=== PATIENT | male | born 1965 | race African-American/Black ===

== ENCOUNTER 2017-07-09 20:24 | Emergency (ER) | payer MEDICAID ==
[~2017-07-09] VITALS: Ht 162.6 cm; Wt 65.8 kg
[~2017-07-09 20:24] MED LIST: ACID REDUCER10 MG PO; ALLOPURINOL100 MG PO; CARVEDILOL25 MG PO; CIPRO 500MG TA500 MG PO; CIPROFLOXACIN500 M2 PO; COLCHICINE0.6 M1 PO; COLCHICINE0.6 M4 PO; HYDRALAZINE HCL25 M1 PO; KEFLEX 500MG.500 MG PO; KLOR-CON M2020 ME1 PO; LISINOPRIL 10MG10 MG PO; MEDROL 4MG. DOSE4 MG PO; NOMEDS *; PHENERGAN 25MG.25 M1 PO; PREDNISONE 10MG10 MG PO; PREDNISONE 20MG20 MG PO; PREDNISONE50 MG PO; PRILOSEC OTC20 MG PO; PRILOSEC40 MG PO; TERAZOSIN PO; VICODIN 5/500 T1 TAB PO; ZANTAC 300300 M1 PO; ZANTAC150 MG PO
--- OUTSIDE RECORDS SUMMARY | 2017-07-09 20:42 | External Medical Summary Rpt | CCD ---
Author Author , NELLY Organization NELLY Address Unknown Phone Care Team Providers Care Boarder Steam Name Role Phone AIR [facility] KENTY, Unavailable Unavailable [facility] METHODS KENT, Unavailable Unavailable [facility] KENTY ARNOLD, ARNOLD Unavailable Unavailable ARNOLD TOBIN, ARNOLD Unavailable Unavailable TOBIN ARNOLD TOBIN, ARNOLD Unavailable Unavailable TOBIN YONIS FRA, YONIS Unavailable Unavailable FRA BERNERT YOLI, BERNERT Unavailable Unavailable YOLI BHATTI ALL, BHATTI ALL Unavailable Unavailable [facility] Unavailable Unavailable SERVICE, [facility] Unavailable Unavailable SERVICE, [facility] FARZANEH SAFETY GLASS INSTALLER, FARZANEH Unavailable Unavailable SAFETY GLASS INSTALLER LUZ ELENA ROSEY, Unavailable Unavailable LUZ ELENA ROSEY CECI ADR, CECI Unavailable Unavailable ADR DISANTIS WENDY, Unavailable Unavailable DISANTIS WENDY FAUGHN LUCAS, FAUGHN Unavailable Unavailable LUCAS SHERMAN JUS, SHERMAN Unavailable Unavailable JUS FRYMAN, FRYMAN Unavailable Unavailable INDIRA RACHAEL, INDIRA Unavailable Unavailable RACHAEL [facility] Unavailable Unavailable INC, [facility] Unavailable Unavailable Hospital, [facility] Unavailable [facility]available HOSPITAL P, [facility], Unavailable Unavailable [facility] Un[facility] Unavailable [facility], [facility] IVONNE MIRACLE, IVONNE MIRACLE Unavailable Unavailable [facility] NURSE Unavailable Unavailable PRACTITIONER GR, [facility] N[facility]SE PRACTITIONER [facility], Unavailable Unavailable [facility] RICKI GARCIA, RICKI Unavailable Unavailable GARCIA [facility] Unavailable Unavailable SERV POULTRY HUSBANDMAN R, [facility] SERV POULTRY HUSBANDMAN R [facility] Unavailable Unavailable SERV POULTRY HUSBANDMAN R, [facility] SERV POULTRY HUSBANDMAN R MINION WENDY, MINION Unavailable Unavailable WENDY FLORY RUTH Unavailable Unavailable GURVINDER KWA, GURVINDER KWA Unavailable Unavailable [facility], Unavailable [facility]available [facility], [facility], Unavailable Unavailable [facility], Unavailable Unavailable [facility] JOÃO CYNDEE, JOÃO CYNDEE Unavailable Unavailable JOÃO CYNDEE, JOÃO CYNDEE Unavailable Unavailable SADEK MOH, SADEK MOH Unavailable Unavailable SCIFRES ANG, SCIFRES Unavailable Unavailable ANG SCIFRES ANG, SCIFRES Unavailable Unavailable ANG STILES NAN, STILES Unavailable Unavailable NAN SUN SKINNY, SUN Unavailable Unavailable SKINNY DARSHAN RACHAEL, DARSHAN Unavailable Unavailable RACHAEL YOUNG JR JANET, YOUNG Unavailable Unavailable JR JANET Purpose Continuity of Care Document - 01-26-2013 through 2016 Problems Code Diagnosis DOS Provider Status I10 ESSENTIAL 05-04-2017 [facility] HYPERTENSIO GROUP N M109 GOUT 05-04-2017 [facility] UNSPECIFIED PHYSICIANS GROUP Z0000 ENCOUNTER 05-04-2017 [facility] GEN ADULT PHYSICIANS MED EXAM GROUP W/O ABNORMAL FIND Z8673 PERSONAL HX 05-04-2017 [facility] TIA & PHYSICIANS 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 H259 UNSPECIFIED 05-02-2017 [facility] CATARACT 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 [id number] OPEN ANGLE 05-02-2017 [facility] W/B[place] SERV E FIND HIGH [facility]OUNDATION RISK BILATERAL 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 05-02-2017 [facility] C [facility] 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 H524 PRESBYOPIA 07-30-2016 SCIF[facility] ANG [id number] PAIN IN 07-21-2016 [facility] M7989 OTHER 07-21-2016 [facility] SPECIFIED [facility] SOFT TISSUE IMAGING ASS DISORDERS J0190 ACUTE 07-19-2016 [facility] TOBIN SINUSITIS UNSPECIFIED J209 ACUTE 07-19-2016 [facility] TOBIN BRONCHITIS UNSPECIFIED R0602 SHORTNESS 06-23-2016 [facility] BREATH [facility]ANCE SERVICE R071 CHEST PAIN 06-23-2016 [facility] BREATHING SERVICE R079 CHEST PAIN 06-23-2016 [facility] ASS M150 PRIMARY 06-02-2016 [facility] TOBIN GENERALIZED OSTEOARTHRI TIS 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 ARNNAIMA 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 M545 LOW BACK 12-13-2015 [facility] PAIN [facility] SERVICE R319 HEMATURIA 12-13-2015 [facility] UNSPECIFIED [facility] SERVICE 7802 SYNCOPE AND 06-08-2015 [facility] COLLAPSE [facility] SERVICE 7804 DIZZINESS 06-08-2015 [facility] GIDDINESS PLL 62613 VOMITING 06-08-2015 [facility] 431 INTRACEREBR 03-20-2015 [facility] HEMORRHAGE 47031 HEMIPL 03-19-2015 [facility] UNSPEC SIDE [facility] DUE CEREBRVASC DISEASE 07661 ATAXIA 03-19-2015 [facility] LATE EFFECT SERV OF [facility] CEREBROVASC ULAR DISEASE 91144 NEUROGENIC 03-19-2015 [facility] BOWEL [facility] V5789 OTHER 03-19-2015 [facility] SPECIFIED [facility] REHABILITAT FOUND[facility] ION PROCEDURE OTHER 2749 GOUT, 03-15-2015 [facility] U[facility]PECIFIED [facility] 4379 UNSPECIFIED 03-13-2015 [facility] CEREBROVASC [facility] ULAR DISEASE 77594 OTHER 03-11-2015 [facility] MALAISE AND [facility] FATIGUE SERV POULTRY HUSBANDMAN R 01382 GENERALIZED 03-11-2015 [facility] PAIN [facility] SERV POULTRY HUSBANDMAN R 7813 LACK OF 03-11-2015 [facility] COORDINATIO [facility]ANCE N SERV POULTRY HUSBANDMAN R V709 UNSPECIFIED 03-11-2015 [facility] MEDICAL [facility] EXAMINATION 84995 PAIN IN 03-07-2015 [facility] JOINT, SERV FOREARM [facility] E8889 UNSPECIFIED 03-07-2015 [facility] FALL [facility] 5180 PULMONARY 03-06-2015 [facility] COLLAPSE [facility] V5882 ENCOUNTER 03-04-2015 [facility] FITTING&ADJ SERV [facility] NON-VASCULA R CATHETER NEC 22688 OTHER 03-03-2015 [facility] CONDITIONS [facility] OF BRAIN 79053 OTHER 03-03-2015 [facility] DISEASES OF SERVICES NASAL CAVITY AND SINUSES V1254 PERSONAL HX 03-03-2015 [facility] TIA & CI SERV W/O [facility] RESIDUAL DEFICITS 2768 HYPOPOTASSE 03-02-2015 [facility] NURSE AMY PRACTITIONE R GR 3485 CEREBRAL 03-02-2015 [facility] EDEMA [facility] 4019 UNSPECIFIED 03-02-2015 [facility] NURSE ESSENTIAL PRACTITIONE HYPERTENSIO R GR N 4409 GENERALIZED 03-02-2015 [facility] AND [facility] UNSPECIFIED FOUNDATION ATHEROSCLER OSIS 63534 CHEST PAIN 03-02-2015 [facility] UNSPECIFIED SERV [facility] 57548 ABDOMINAL 03-02-2015 [facility] PAIN, SERV UNSPECIFIED FOUNDATION SITE 90412 CONJUNCTIVA 03-01-2015 [facility] L [facility] HEMORRHAGE [facility] 96089 OTHER 03-01-2015 [facility] SPECIFIED SERV CARDIAC FOUNDATION DYSRHYTHMIA S 4279 UNSPECIFIED 03-01-2015 [facility] CARDIAC [facility] DYSRHYTHMIA FOUNDATION 7231 CERVICALGIA 03-01-2015 [facility] 7810 ABNORMAL 03-01-2015 [facility] INVOLUNTARY AMBULANCE MOVEMENTS SERVICE 7822 LOCALIZED 03-01-2015 [facility] SUPERFICIAL MEDICAL SWELLING IMAGING ASS MASS OR LUMP 50048 NONSPECIFIC 03-01-2015 [facility] ABNORMAL SERV ELECTROCARD [facility] IOGRAM 57283 CLOS FX 03-01-2015 [facility] VAULT [place] SKULL-SUBAR ACH-DURAL HEMORR-NO LOC 66588 CLOS FX 03-01-2015 [facility] VAULT [facility] SKULLW/ICI [facility]OUND[facility] UNS NATUR UNS SOC 8028 OTHER 03-01-2015 [place] FACIAL MEDICAL BONES IMAGING ASS CLOSED FRACTURE 91122 OTH&UNS ICH 03-01-2015 [place] FOLLOW MEDICAL INJR W/O IMAGING ASS OPEN ICW UNS SOC E9293 LATE 03-01-2015 [facility] EFFECTS OF SERV ACCIDENTAL [facility]OUNDATION FALL 7842 SWELLING 02-27-2015 [place] MASS OR MEDICAL LUMP IN IMAGING ASS HEAD AND NECK 7850 UNSPECIFIED 02-27-2015 [facility] TACHYCARDIA SERVICE 8708 OTHER 02-27-2015 [place] SPECIFIED MEDICAL OPEN WOUND IMAGING ASS OF OCULAR ADNEXA 98138 DIVERTICULO 02-23-2015 [place] SIS OF MEDICAL COLON IMAGING ASS 8830 OPEN WOUND 02-12-2015 [facility], WITHOUT PLLC MENTION COMPLICATIO N 9594 INJURY 02-12-2015 [facility] OTHER AND AMBULANCE UNSPECIFIED SERVICE HAND EXCEPT FINGER 7295 PAIN IN 01-27-2015 [facility] SOFT AMBULANCE TISSUES OF SERVICE LIMB 41470 PRECORDIAL 01-27-2015 [facility] PAIN AMBULANCE SERVICE 5758 OTHER 12-04-2014 [facility] SPECIFIED MEDICAL DISORDER OF IMAGING ASS GALLBLADDER 5780 HEMATEMESIS 12-04-2014 [facility] SERV[facility] 59549 OTHER 12-04-2014 [place] SPECIFIED MEDICAL DISORDERS IMAGING ASS OF BLADDER 92834 ABDOMINAL 12-04-2014 [place] PAIN OTHER MEDICAL SPECIFIED IMAGING ASS SITE V140 PERSONAL 08-14-2014 [facility] TO [facility] P PENICILLIN 5718 OTHER 07-21-2014 [place] CHRONIC MEDICAL NONALCOHOLI IMAGING ASS C LIVER DISEASE 7881 DYSURIA 07-21-2014 [facility] 54098 ACUTE GOUTY 02-02-2014 JOÃO CYNDEE ARTHROPATHY 93086 PAIN IN 02-02-2014 JOÃO YCNDEE JOINT, ANKLE AND FOOT [id number] Abdominal [place] pain [facility] [id number] Alcohol [place] [facility] [place] Allergies, Adverse Reactions, Alerts Type Drug Allergy Food Allergy Adverse Reaction to Substance Substance Reaction Severity Penicillin I-HIVES Intermediate Aspirin I-RASH Intermediate Onion Unknown Unknown TOMATOES (FOOD) UNKNOWN Unknown Medications Na ND Rx Da Fi Fi Am Da Di Ph RX Ph St me C No te ll ll ou ys ag ar # ys at rm s nt no ma ic us Or Da si cy ia de te s n re d LI 68 08 09 30 30 00 EA Ac SI 18 -2 -[address] ti NO 00 5- 9- 00 00 SI ve UT 51 20 20 49 DE [place] 90 17 17 81 -H [address] AR Z MA 20 CY -1 2. OF 5 CY MG NT HI TA AN B A IN C IN 68 08 09 90 30 00 EA Ac DO 46 -1 -[address] ti ME 20 0- 5- 00 00 SI ve TH 40 20 20 49 DE AC 60 17 17 74 IN 1 96 PH AR 25 MA CY MG OF CA CY PS NT UL HI E AN A IN C CE 16 08 09 30 30 00 EA Ac TI 71 -1 -[address] ti RI 40 6- 5- 00 00 SI ve ZI 27 20 20 49 DE NE 10 17 17 81 3 31 PH HC AR L MA 10 CY MG OF CY TA NT BL HI ET AN A IN C HY 50 08 09 [address] 11 -0 -[address] ti AL 10 9- 8- 00 SI ve AZ 32 20 20 49 DE IN 70 17 17 19 E 1 44 PH 25 AR MA MG CY TA OF BL CY ET NT HI AN A IN C LI 68 07 09 30 30 00 EA Ac SI 18 -2 -[address] ti NO 00 7- 1- 00 SI ve UT 51 20 20 49 DE IL 90 17 17 58 -H [address] AR Z MA 20 CY -1 2. OF 5 CY MG NT HI TA AN B A IN C CE 16 07 08 30 30 00 EA Ac TI 71 -1 -[address] ti RI 40 9- 8- 00 00 SI ve ZI 27 20 20 49 DE NE 10 17 17 49 3 54 PH HC AR L MA 10 CY MG OF CY TA NT BL HI ET AN A IN C LI 68 06 07 30 30 00 EA Ac SI 18 -2 -[address] ti NO 00 0- 1- 00 00 SI ve UT 51 20 20 49 DE IL 90 17 17 19 -H [address] AR Z MA 20 CY -1 2. OF 5 CY MG NT HI TA AN B A IN C HY 50 06 07 [address] 11 -2 -[address] ti AL 10 0- 1- 00 00 SI ve AZ 32 20 20 49 DE IN 70 17 17 19 E 1 44 PH 25 AR MA MG CY TA OF BL CY ET NT HI AN A IN C LI 68 05 06 30 30 00 EA Ac SI 18 -1 -[address] ti NO 00 1- 6- 00 00 SI ve UT 51 20 20 48 DE IL 90 17 17 71 -H [address] AR Z MA 20 CY -1 2. OF 5 CY MG NT HI TA AN B A IN C IN 68 04 05 90 30 00 EA Ac DO 46 -2 -[address] ti ME 20 1- 6- 00 00 SI ve TH 40 20 20 47 DE AC 60 17 17 60 IN 1 90 PH AR 25 MA CY MG OF CA CY PS NT UL HI E AN A IN C LA 17 04 05 2. 30 00 EA Ac TA 47 -2 -[address] ti NO 80 6- 6- 0 00 SI ve UT 62 20 20 46 DE OS 51 17 17 50 T 2 26 PH 0. AR 00 MA 5% CY EY OF E CY DR NT OP HI S AN A IN C HY 50 04 05 [address] 11 -1 -[address] ti AL 10 0- 2- 00 00 SI ve AZ 32 20 20 44 DE IN 70 17 17 29 E 1 56 PH 25 AR MA MG CY TA OF BL CY ET NT HI AN A IN C LI 68 04 05 30 30 00 EA Ac SI 18 -1 -[address] ti NO 00 0- 2- 00 00 SI ve UT 51 20 20 47 DE IL 90 17 17 50 -H [address] AR Z MA 20 CY -1 2. OF 5 CY MG NT HI TA AN B A IN C CE 16 03 05 30 30 00 EA Ac TI 71 -3 -[address] ti RI 40 0- 5- 00 00 SI ve ZI 27 20 20 47 DE NE 10 17 17 71 3 39 PH HC AR L MA 10 CY MG OF CY TA NT BL HI ET AN A IN C LI 68 03 04 30 30 00 EA Ac SI 18 -0 -[address] ti NO 00 6- 7- 00 00 SI ve UT 51 20 20 47 DE [place] 90 17 17 50 -H [address] AR Z MA 20 CY -1 2. OF 5 CY MG NT HI TA AN B A IN C LA 17 03 04 2. 30 00 EA Ac TA 47 -0 -[address] ti NO 80 2- 7- 0 00 SI ve UT 62 20 20 46 DE OS 51 17 17 50 T 2 26 PH 0. AR 00 MA 5% CY EY OF E CY DR NT OP HI S AN A IN C OS 47 02 03 10 5 00 EA Ac EL 78 -2 -[address] ti TA 10 2- 4- 00 00 SI ve AK 47 20 20 47 DE 01 17 17 71 R 3 38 PH PH AR OS MA CY 75 OF MG CY NT CA HI PS AN UL A E IN C CE 16 02 03 30 30 00 EA Ac TI 71 -2 -[address] ti RI 40 2- 4- 00 00 SI ve ZI 27 20 20 47 DE NE 10 17 17 71 3 39 PH HC AR L MA 10 CY MG OF CY TA NT BL HI ET AN A IN C IN 68 02 03 90 30 00 EA Ac DO 46 -1 -[address] ti ME 20 4- 7- 00 00 SI ve TH 40 20 20 47 DE AC 60 17 17 60 IN 1 90 PH AR 25 MA CY MG OF CA CY PS NT UL HI E AN A IN C HY 50 02 03 [address] 11 -0 -[address] ti AL 10 6- 0- 00 00 SI ve AZ 32 20 20 44 DE IN 70 17 17 29 E 1 56 PH 25 AR MA MG CY TA OF BL CY ET NT HI AN A IN C LI 68 02 03 30 30 00 EA Ac SI 18 -0 -[address] ti NO 00 6- 0- 00 00 SI ve UT 51 20 20 47 DE IL 90 17 17 50 -H [address] AR Z MA 20 CY -1 2. OF 5 CY MG NT HI TA AN B A IN C CO 66 02 03 2. 2 00 EA Ac LC 99 -0 -[address] ti HI 30 6- 0- 0 00 SI ve CI 16 20 20 46 DE NE 50 17 17 55 2 25 PH 0. AR 6 MA MG CY TA OF BL CY ET NT HI AN A IN C CO 66 01 03 7. 7 00 EA Ac LC 99 -2 -[address] ti HI 30 6- 3- 0 00 SI ve CI 16 20 20 46 DE NE 50 17 17 55 2 25 PH 0. AR 6 MA MG CY TA OF BL CY ET NT HI AN A IN C CO 66 01 02 7. 7 00 EA Ac LC 99 -0 -[address] ti HI 30 9- 0- 0 00 SI ve CI 16 20 20 46 DE NE 50 17 17 55 2 25 PH 0. AR 6 MA MG CY TA OF BL CY ET NT HI AN A IN C HY 50 12 01 [address] 11 -2 -[address] ti AL 10 3- 7- 00 00 SI ve AZ 32 20 20 44 DE IN 70 16 17 29 E 1 56 PH 25 AR MA MG CY TA OF BL CY ET NT HI AN A IN C CO 66 12 01 7. 7 00 EA Ac LC 99 -2 -[address] ti HI 30 3- 7- 0 00 SI ve CI 16 20 20 46 DE NE 50 16 17 55 2 25 PH 0. AR 6 MA MG CY TA OF BL CY ET NT HI AN A IN C CO 66 12 01 7. 7 00 EA Ac LC 99 -1 -[address] ti HI 30 5- 0- 0 00 SI ve CI 16 20 20 46 DE NE 50 16 17 55 2 25 PH 0. AR 6 MA MG CY TA OF BL CY ET NT HI AN A IN C CO 66 12 01 7. 7 00 EA Ac LC 99 -0 -[address] ti HI 30 6- 9- 0 00 SI ve CI 16 20 20 46 DE NE 50 16 17 55 2 25 PH 0. AR 6 MA MG CY TA OF BL CY ET NT HI AN A IN C KE 00 12 0 No TO 40 -2 RO 93 9- Lo LA 79 20 ng C 60 13 er 60 1 Ac MG ti /2 ve ML AL UT 00 12 0 No ED 05 -2 NI 40 9- Lo SO 01 20 ng NE 82 13 er 0 20 Ac ti MG ve TA BL ET CE 62 11 0 No PH 75 -1 AL 60 4- Lo EX 29 20 ng IN 48 13 er 8 50 Ac 0 ti MG ve CA PS UL E UT 00 11 0 No ED 05 -1 NI 40 4- Lo SO 01 20 ng NE 82 13 er 0 20 Ac ti MG ve TA BL ET AC 51 11 0 No ET 07 -1 AM 90 4- Lo IN 16 20 ng OP 19 13 er HE 9H N Ac W/ ti CO ve DE IN E #3 TA K SO 00 07 0 No DI 40 -1 UM 97 4- Lo 98 20 ng CH 30 13 er LO 9 RI Ac DE ti ve 0. 9% SO ARACELI TI ON Sa 63 07 0 No li 80 -1 ne 70 4- Lo 10 20 ng Fl 07 13 er us 5 h Ac 10 ti ML ve Sy ri ng e AZ 68 07 0 No IT 08 -1 HR 40 4- Lo OM 27 20 ng YC 80 13 er IN 1 Ac 25 ti 0 ve MG TA BL ET CE 00 07 0 No FT 40 -1 RI 97 4- Lo AX 33 20 ng ON 70 13 er E 1 25 Ac 0 ti MG ve AL LA [address] 40 -1 AT 97 0- Lo ED 95 20 ng 30 13 er RI 9 NG Ac ER ti S ve IN JE CT IO N RA 05 0 No LL -1 Y 0- Lo PA 20 ng CK 13 er Ac ti ve Sa 63 05 0 No li 80 -1 ne 70 0- Lo 10 20 ng Fl 07 13 er us 5 h Ac 10 ti ML ve Sy ri ng e Vital Signs 09-16-2013 17:42 Name Value Interpretat Reference Comment ion Range Body 98.2 [degF] Temperature BP 77 mm[Hg] Diastolic BP Systolic 147 mm[Hg] Heart 87 /min Rate/Pulse O2% 97 % Respiratory 22 /min Rate 09-16-2013 17:40 Name Value Interpretat Reference Comment ion Range Body 98.2 [degF] Temperature 09-16-2013 16:34 Name Value Interpretat Reference Comment ion Range BP 97 mm[Hg] Diastolic BP Systolic 137 mm[Hg] Heart 91 /min Rate/Pulse O2% 98 % Respiratory 20 /min Rate 08-02-2013 02:46 Name Value Interpretat Reference Comment ion Range BP 118 mm[Hg] Diastolic BP Systolic 164 mm[Hg] Heart 96 /min Rate/Pulse O2% 100 % Respiratory 18 /min Rate 08-02-2013 02:45 Name Value Interpretat Reference Comment ion Range BP 118 mm[Hg] Diastolic BP Systolic 164 mm[Hg] Heart 96 /min Rate/Pulse O2% 100 % Respiratory 18 /min Rate 04-01-2013 17:30 Name Value Interpretat Reference Comment ion Range Body 98 [degF] Temperature BP 71 mm[Hg] Diastolic BP Systolic 178 mm[Hg] Heart 107 /min Rate/Pulse O2% 95 % Respiratory 20 /min Rate 04-01-2013 15:30 Name Value Interpretat Reference Comment ion Range BP 104 mm[Hg] Diastolic BP Systolic 157 mm[Hg] Heart 105 /min Rate/Pulse O2% 97 % Respiratory 20 /min Rate 01-26-2013 19:15 Name Value Interpretat Reference Comment ion Range BP 118 mm[Hg] Diastolic BP Systolic 153 mm[Hg] Heart 101 /min Rate/Pulse O2% 97 % Respiratory 18 /min Rate 01-26-2013 16:34 Name Value Interpretat Reference Comment ion Range BP 95 mm[Hg] Diastolic BP Systolic 159 mm[Hg] Heart 85 /min Rate/Pulse O2% 95 % Respiratory 16 /min Rate Results Labs Lab Lab Date Result Refere Interp Status Commen Order Detail nces retati t Range on URIC ACID (09-16-2013 16:58) URIC 7.8 2.6-7.2 complet ACID 013 mg/dL ed 16:58 COMPREHENSIVE METABOLIC PANEL (04-01-2013 15:15) Glucose 133 74-106 complet 013 mg/dL ed Bld-mCn 15:15 c BUN 6 mg/dL 7-18 complet Bld-mCn 013 ed c 15:15 Creat 0.9 0.8-1.3 complet SerPl-m 013 mg/dL ed Cnc 15:15 ESTIMAT 85 50-200 complet ED 013 ML/MIN ed CREATIN 15:15 INE CLEARAN CE GFR 89 Greater complet (ESTIMA 013 ML/MIN than ed RUPA) 15:15 60 Sodium 141 136-145 complet SerPl-s 013 mmoL/L ed Cnc 15:15 Potassi 3.7 3.5-5.1 complet um 013 mmoL/L ed SerPl-s 15:15 Cnc Chlorid 101 98-107 complet e 013 mmoL/L ed SerPl-s 15:15 Cnc CO2 29 21.0-32 complet SerPl-s 013 mmoL/L .0 ed Cnc 15:15 Calcium 8.4 8.5-10. complet 013 mg/dL 1 ed SerPl-m 15:15 Cnc Prot 04-01-2 9.1 6.4-8.2 complet SerPl-m 013 gm/dL ed Cnc 15:15 Albumin 04-01-2 3.7 3.4-5.0 complet 013 gm/dL ed SerPl-m 15:15 Cnc Globuli 04-01-2 5.4 1.3-3.2 complet n 013 gm/dL ed Ser-mCn 15:15 c Albumin 04-01-2 0.7 UNK 1.1-1.8 complet /Glob 013 ed SerPl-m 15:15 Rto Bilirub 04-01-2 0.4 0.2-1.0 complet 013 mg/dL ed SerPl-m 15:15 Cnc AST 04-01-2 102 U/L 15-37 complet SerPl-c 013 ed Cnc 15:15 ALT 04-01-2 72 U/L 30-65 complet SerPl-c 013 ed Cnc 15:15 ALP 04-01-2 146 U/L 50-136 complet SerPl-c 013 ed Cnc 15:15 LIVER PROFILE (04-01-2013 15:15) Bilirub 04-01-2 0.1 0.0-0.2 complet Direct 013 mg/dL ed 15:15 SerPl-m Cnc Bilirub 04-01-2 0.3 0-0.9 complet 013 mg/dL ed Indirec 15:15 t SerPl-m Cnc Amylase SerPl-cCnc (04-01-2013 15:15) Amylase 04-01-2 55 U/L 25-115 complet 013 ed SerPl-c 15:15 Cnc LIPASE (04-01-2013 15:15) LIPASE 04-01-2 125 U/L 73-393 complet 013 ed 15:15 CBC with AUTO DIFF (04-01-2013 15:15) WBC # 14-2 8.8 4.8-10. complet Bld 013 K/MM3 8 ed Auto 15:15 RBC # 14-2 4.61 4.6-6.2 complet Bld 013 M/mm3 ed Auto 15:15 Hgb 04-01-2 14.7 14.1-18 complet Bld-mCn 013 g/dL .0 ed c 15:15 Hct Fr 07-14-2 43.8 % 42.0-52 complet Bld 013 .0 ed 15:15 MCV RBC 14-2 95.0 fl 82.2-97 complet 013 .8 ed 15:15 MCH RBC 14-2 31.8 pg 27-31.2 complet Qn 013 ed Auto 15:15 MEAN 2 33.5 31.8-35 complet CORPUSC 013 g/dl .4 ed ULAR 15:15 HGB CONC RDW RBC 04-01-2 13.6 % 11.5-17 complet Auto 013 .5 ed 15:15 Platele -14-2 161 142-424 complet t Bld 013 K/mm3 ed Ql 15:15 Manual MEAN 2 9.2 fl 7.4-10. complet PLATELE 013 4 ed T 15:15 VOLUME Granulo -14-2 40.9 % 37.0-80 complet cytes 013 .0 ed Fr Bld 15:15 Auto LYMPH % 07-14-2 51.4 % 10-50 complet 013 ed 15:15 Monocyt -14-2 5.8 % 1.7-9.3 complet es Fr 013 ed Bld 15:15 Auto Eosinop 07-14-2 0.6 % 0.1-12. complet hil Fr 013 0 ed Bld 15:15 Auto Basophi 07-14-2 1.2 % 0.1-2.0 complet ls Fr 013 ed Bld 15:15 Auto Granulo 07-14-2 3.6 1.3-8.0 complet cytes # 013 K/mm3 ed Bld 15:15 Auto Lymphoc 07-14-2 4.5 0.7-4.5 complet ytes Fr 013 K/mm3 ed Bld 15:15 Auto Monocyt 07-14-2 0.5 0.1-1.0 complet es # 013 K/mm3 ed Bld 15:15 Auto Eosinop 07-14-2 0.1 0.0-0.4 complet hil # 013 K/mm3 ed Bld 15:15 Auto Basophi 07-14-2 0.1 0-0.2 complet ls # 013 K/MM3 ed Bld 15:15 Auto COMPREHENSIVE METABOLIC PANEL (01-26-2013 16:30) Glucose 106 74-106 complet 013 mg/dL ed Bld-mCn 16:30 c BUN 10-2 9 mg/dL 7-18 complet Bld-mCn 013 ed c 16:30 Creat 05-10-2 0.9 0.8-1.3 complet SerPl-m 013 mg/dL ed Cnc 16:30 ESTIMAT 0510-2 86 50-200 complet ED 013 ML/MIN ed CREATIN 16:30 INE CLEARAN CE GFR 10-2 90 Greater complet (ESTIMA 013 ML/MIN than ed RUPA) 16:30 60 Sodium 10-2 137 136-145 complet SerPl-s 013 mmoL/L ed Cnc 16:30 Potassi 0510-2 3.6 3.5-5.1 complet um 013 mmoL/L ed SerPl-s 16:30 Cnc Chlorid 10-2 99 98-107 complet e 013 mmoL/L ed SerPl-s 16:30 Cnc CO2 01-26-2 27 21.0-32 complet SerPl-s 013 mmoL/L .0 ed Cnc 16:30 Calcium 10-2 8.7 8.5-10. complet 013 mg/dL 1 ed SerPl-m 16:30 Cnc Prot 10-2 9.5 6.4-8.2 complet SerPl-m 013 gm/dL ed Cnc 16:30 Albumin 10-2 3.8 3.4-5.0 complet 013 gm/dL ed SerPl-m 16:30 Cnc Globuli 10-2 5.7 1.3-3.2 complet n 013 gm/dL ed Ser-mCn 16:30 c Albumin 01-26-2 0.7 UNK 1.1-1.8 complet /Glob 013 ed SerPl-m 16:30 Rto Bilirub 10-2 0.5 0.2-1.0 complet 013 mg/dL ed SerPl-m 16:30 Cnc AST 10-2 93 U/L 15-37 complet SerPl-c 013 ed Cnc 16:30 ALT 10-2 66 U/L 30-65 complet SerPl-c 013 ed Cnc 16:30 ALP 10-2 122 U/L 50-136 complet SerPl-c 013 ed Cnc 16:30 CBC with AUTO DIFF (01-26-2013 16:30) WBC # 05-10-2 7.4 4.8-10. complet Bld 013 K/MM3 8 ed Auto 16:30 RBC # 05-10-2 4.58 4.6-6.2 complet Bld 013 M/mm3 ed Auto 16:30 Hgb 05-10-2 14.7 14.1-18 complet Bld-mCn 013 g/dL .0 ed c 16:30 Hct Fr 05-10-2 43.7 % 42.0-52 complet Bld 013 .0 ed 16:30 MCV RBC 05-10-2 95.4 fl 82.2-97 complet 013 .8 ed 16:30 MCH RBC 05-10-2 32.0 pg 27-31.2 complet Qn 013 ed Auto 16:30 MEAN 05-10-2 33.6 31.8-35 complet CORPUSC 013 g/dl .4 ed ULAR 16:30 HGB CONC RDW RBC 05-10-2 13.5 % 11.5-17 complet Auto 013 .5 ed 16:30 Platele 05-10-2 279 142-424 complet t Bld 013 K/mm3 ed Ql 16:30 Manual MEAN 05-10-2 8.5 fl 7.4-10. complet PLATELE 013 4 ed T 16:30 VOLUME Granulo 05-10-2 46.9 % 37.0-80 complet cytes 013 .0 ed Fr Bld 16:30 Auto LYMPH % 05-10-2 43.8 % 10-50 complet 013 ed 16:30 Monocyt 05-10-2 6.1 % 1.7-9.3 complet es Fr 013 ed Bld 16:30 Auto Eosinop 05-10-2 1.4 % 0.1-12. complet hil Fr 013 0 ed Bld 16:30 Auto Basophi 05-10-2 1.8 % 0.1-2.0 complet ls Fr 013 ed Bld 16:30 Auto Granulo 05-10-2 3.5 1.3-8.0 complet cytes # 013 K/mm3 ed Bld 16:30 Auto Lymphoc 05-10-2 3.2 0.7-4.5 complet ytes Fr 013 K/mm3 ed Bld 16:30 Auto Monocyt 05-10-2 0.5 0.1-1.0 complet es # 013 K/mm3 ed Bld 16:30 Auto Eosinop 05-10-2 0.1 0.0-0.4 complet hil # 013 K/mm3 ed Bld 16:30 Auto Basophi 05-10-2 0.1 0-0.2 complet ls # 013 K/MM3 ed Bld 16:30 Auto URINALYSIS/COMPLETE (01-26-2013 16:20) URINE 05-10-2 YELLOW YELLOW complet COLOR 013 ed 16:20 URINE 05-10-2 CLEAR CLEAR complet APPEARA 013 ed NCE 16:20 URINE 05-10-2 NEGATIV NEG complet GLUCOSE 013 E ed - 16:20 DIPSTIC K URINE 05-10-2 NEGATIV NEG complet BILIRUB 013 E ed IN - 16:20 DIPSTIC K URINE 05-10-2 NEGATIV NEG complet KETONE 013 E mg/dL ed 16:20 URINE 05-10-2 1.010 1.005-1 complet SPECIFI 013 UNK .030 ed C 16:20 GRAVITY URINE 05-10-2 NEGATIV NEG complet BLOOD 013 E ed 16:20 URINE 05-10-2 6.5 UNK 5.0-8.5 complet PH 013 ed 16:20 URINE 05-10-2 TRACE NEG complet PROTEIN 013 mg/dL ed - 16:20 DIPSTIC K URINE 05-10-2 2.0 NEG complet UROBILI 013 E.U./dL ed NOGEN - 16:20 DIPSTIC K URINE 05-10-2 NEGATIV NEG complet NITRATE 013 E ed - 16:20 DIPSTIC K URINE 05-10-2 NEGATIV NEG complet LEUK 013 E ed ESTERAS 16:20 E URINE 05-10-2 3-5 0 complet RBC 013 rbc/hpf ed 16:20 URINE 05-10-2 OCC O complet WBC 013 wbc/hpf ed 16:20 URINE 05-10-2 10-20 OCC complet SQUAMOU 013 #/hpf ed S CELLS 16:20 URINE 05-10-2 1+ NONE complet MUCUS 013 ed 16:20 Procedures Procedure DOS Code Location Performer Comment HEPATITIS 23361 [facility] [place] [address] [facility] [place] [address] [facility] FREE [facility] [place] [address] [facility] THYROID 7 [facility] STIMULATI INC INC NG HORMONE TSH HEPATITIS 50245 [facility] A [facility]TIBODY [facility] INC HAAB COMPREHEN 12724 [facility] SIVE [facility] METABOLIC INC INC PANEL BLOOD 74581 [facility] COUNT [facility] COMPLETE INC INC AUTO&AUTO DIFRNTL WBC HEPATITIS [address] [facility] C [facility] ANTIBODY INC INC LIPID 11059 [facility]ACK[facility]LL PANEL 7 [facility] INC INC GONIOSCOP 72150 DOM RUTH Y 7 MEDICAL SEPARATE SERV PROCEDURE FOUNDATIO N VISUAL 97305 DOM RUTH FIELD XM 7 MEDICAL UNI/BI SERV W/INTERP FOUNDATIO EXTENDED N EXAM OPHTHALMI 77891 DOM Wallace US DX 7 MEDICAL CORNEAL SERV PACHYMETR FOUNDATIO Y UNI/BI N COMPUTERI 42772 DOM RUTH ZED 7 MEDICAL OPHTHALMI SERV C IMAGING FOUNDATIO OPTIC N NERVE OPHTH 01080 SCIFRES SCIFRES MEDICAL 6 ANG ANG XM&EVAL COMPRE NEW PT 1/> VST RADEX 90869 [place] E[place]NA FOOT 6 MEDICAL ROSEY COMPLETE IMAGING MINIMUM 3 ASS VIEWS GROUND A0425 [facility] PER SERVICE SERVICE STATUTE MILE AMB A0427 [facility] SERVICE 6 AMBULANCE AMBULANCE ALS SERVICE SERVICE EMERGENCY TRANSPORT LEVEL 1 RADIOLOGI 81451 [place] ALL C 6 MEDICAL EXAMINATI IMAGING ON CHEST ASS SINGLE VIEW FRONTAL AMB A0427 [facility] SERVICE 6 AMBULANCE AMBULANCE ALS SERVICE SERVICE EMERGENCY TRANSPORT LEVEL 1 GROUND A0425 [facility] AM[facility]UL[facility] PER SERVICE SERVICE STATUTE MILE AMBULANCE A0429 [facility] SERVICE 5 AMBULANCE AMBULANCE BLS SERVICE SERVICE EMERGENCY TRANSPORT GROUND A0425 [facility] AMBULANCE PER SERVICE SERVICE STATUTE [facility] [address] [place] BERNERT DISCHARGE 5 MEDICAL YOLI DAY SERV MANAGEMEN FOUNDATIO T 30 N MIN/< WALKER E0143 PATIENT PATIENT FOLDING 5 AIDS INC AIDS INC WHEELED ADJUSTABL E/FIXED HEIGHT SBSQ 24893 [place] [address] MEDICAL YOLI CARE/DAY SERV 25 FOUNDATIO MINUTES N SBSQ 95177 [place] [address] MEDICAL YOLI CARE/DAY SERV 25 FOUNDATIO MINUTES N SBSQ 82104 [place] [address] MEDICAL YOLI CARE/DAY SERV 25 FOUNDATIO MINUTES N SBSQ [address]7976 [place] [address] MEDICAL NAN CARE/DAY SERV 25 FOUNDATIO MINUTES N SBSQ 12146 [place] [address] MEDICAL NAN CARE/DAY SERV 25 FOUNDATIO MINUTES N SBSQ 45923 [place] [address] MEDICAL YOLI CARE/DAY SERV 25 FOUNDATIO MINUTES N SBSQ 96254 [place] [address] MEDICAL YOLI CARE/DAY SERV 25 FOUNDATIO MINUTES N SBSQ 33021 [place] [address] MEDICAL YOLI CARE/DAY SERV 25 FOUNDATIO MINUTES N DUP-SCAN 42706 [place] MINION XTR VEINS 5 MEDICAL WENDY COMPLETE SERV FOUNDATIO BILATERAL N STUDY AMBULANCE A0428 [facility] SERVICE 5 AMBULANCE AMBULANCE BLS SERV POULTRY HUSBANDMAN SERV POULTRY HUSBANDMAN NONEMERGE R R NMY TRANSPORT GROUND A0425 [facility] MILEAGE 5 AMBULANCE AMBULANCE PER SERV POULTRY HUSBANDMAN SERV POULTRY HUSBANDMAN STATUTE R R [facility] [address] [facility] 5 MEDICAL JUS DAY SERV MANAGEMEN FOUNDATIO T 30 N MIN/< SBSQ 74970 [facility] 5 MEDICAL JUS CARE/DAY SERV 15 FOUNDATIO MINUTES N SBSQ [address] [facility] 5 MEDICAL JUS CARE/DAY SERV 15 FOUNDATIO MINUTES [address] [facility] 5 MEDICAL JUS CARE/DAY SERV 15 FOUNDATIO MINUTES N RADEX 40250 [facility] 5 MEDICAL COMPLETE SERV MINIMUM 3 FOUNDATIO VIEWS N SBSQ 77833 [facility] 5 MEDICAL JUS CARE/DAY SERV 15 FOUNDATIO MINUTES N SBSQ 51543 [facility] 5 MEDICAL MEDICAL CARE/DAY SERV SERV 15 FOUNDATIO FOUNDATIO MINUTES N N RADIOLOGI 95210 [facility] 5 MEDICAL RACHAEL EXAMINATI SERV ON CHEST FOUNDATIO SINGLE N VIEW FRONTAL SLCTV 67752 [facility] 5 MEDICAL JUS CAROTID/I SERV NNOM ART FOUNDATIO ANGIO N INTRCRANL ART SLCTV 57169 [facility] CATH 5 MEDICAL JUS SUBCLAVIA SERV N ART FOUNDATIO ANGIO N VERTEBRAL ARTERY RADEX 24821 [place] DISANTIS ABDOMEN 1 5 MEDICAL WENDY SERV ANTEROPOS FOUNDATIO TERIOR N VIEW SBSQ 39044 [facility] 5 MEDICAL JUS CARE/DAY SERV 15 FOUNDATIO MINUTES N SBSQ 80227 [place] [address] MEDICAL JUS CARE/DAY SERV 15 FOUNDATIO MINUTES N RADEX 50621 [place] CECI ABDOMEN 1 5 MEDICAL ADR SERV ANTEROPOS FOUNDATIO [place] ANES [address] [place] NON-INVAS 5 MEDICAL MEDICAL YUMIKO SERVICES SERVICES IMAGING/R ADIATION THERAPY RADIOLOGI 53531 [facility] 5 MEDICAL RACHAEL EXAMINATI SERV ON CHEST FOUNDATIO SINGLE N VIEW FRONTAL MRI BRAIN [address] [facility] BRAIN 5 MEDICAL STEM W/O SERV W/CONTRAS FOUNDATIO T N MATERIAL SBSQ 90370 [place] [address] MEDICAL JUS CARE/DAY SERV [address] [place] [address] DOM GURVINDER KWA ANGIOGRAP 5 MEDICAL HY NECK SERV W/CONTRAS FOUNDATIO T/[place] [address] [place] YONIS ANGIOGRAP 5 MEDICAL FRA HY CHEST SERV W/CONTRAS FOUNDATIO T/[place] [address] DOM HOLLINS KWA THORACIC 5 MEDICAL SPINE W/O SERV CONTRAST FOUNDATIO MATERIAL N INITIAL 43093 [place] [address] MEDICAL JUS CARE/DAY SERV 70 FOUNDATIO MINUTES N CRITICAL 32006 [facility] 5 NURSE GARCIA ILL/INJUR PRACTITIO ED NER GR PATIENT INIT 30-[address] [place] [address] DOM BRANNON ANGIOGRAP 5 MEDICAL HY HEAD SERV W/CONTRAS FOUNDATIO T/NONCONT N [facility]ST [facility] LUMBAR 310[address] DOM GURVINDER KWA SPINE 5 MEDICAL W/[place] [address] DOM YONIS ABDOMEN & 5 MEDICAL FRA PELVIS SERV W/[place] [address] [place] ELENA MAXILLOFA 5 MEDICAL ROSEY CIAL W/O IMAGING CONTRAST ASS MATERIAL ECG 39947 DOM FARZANEH ROUTINE 5 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 SERV W/LEAST FOUNDATIO 12 LDS N I&R ONLY GROUND A0425 [facility] AMBULANCE PER SERVICE SERVICE STATUTE MILE AMB A0431 AIR [facility] SERVICE 5 METHODS METHODS [facility] SRVC TRANSP[place] [address] [place] [address] [place] ELENA HEAD/BRAI 5 MEDICAL ROSEY N W/[place] [address] DOM SUN CERVICAL 5 MEDICAL SKINNY SPINE W/O SERV CONTRAST FOUNDATIO MATERIAL N AMBULANCE A0429 [facility] SERVICE 5 AMBULANCE AMBULANCE BLS SERVICE SERVICE EMERGENCY TRANSPORT GROUND A0425 [facility] AM[facility]ULANCE AMBULANCE PER SERVICE SERVICE STATUTE MILE RADEX 57755 [place] E[facility] ORBITS 5 MEDICAL ROSYE COMPLETE IMAGING MINIMUM 4 ASS VIEWS AMB A0427 [facility] SERVICE 5 AMBULANCE AMBULANCE ALS SERVICE SERVICE [place] [address] [place] E[place] ABDOMEN & 5 MEDICAL ROSEY PELVIS IMAGING W/O ASS CONTRAST MATERIAL RADIOLOGI 45339 [place] ELE[place] C 5 MEDICAL ROSEY EXAMINATI IMAGING ON CHEST ASS SINGLE VIEW FRONTAL SIMPLE 30828 [facility] REPAIR 5 PHYSICIAN RACHAEL SCALP/NEC S, PLLC K/AX/CARY T/TRUNK 2.5CM/< GROUND A0425 [facility]ULANCE AMBULANCE PER SERVICE SERVICE STATUTE MILE AMBULANCE A0429 [facility] SERVICE 5 AMBULANCE AMBULANCE BLS SERVICE SERVICE EMERGENCY TRANSPORT RADIOLOGI 84298 MARTY [facility]Z ELENA C 5 MEDICAL ROSEY EXAMINATI IMAGING ON CHEST ASS SINGLE VIEW FRONTAL AMB A0427 [facility] SERVICE 5 AMBULANCE AMBULANCE ALS SERVICE SERVICE EMERGENCY TRANSPORT LEVEL 1 GROUND A0425 [facility]ANCE AMBULANCE PER SERVICE SERVICE STATUTE MILE GROUND A0425 [facility]ULANCE AMBULANCE [place] [address] MARTY LUZ ELENA ABDOMEN & 5 MEDICAL ROSEY PELVIS IMAGING W/O ASS CONTRAST MATERIAL AMBULANCE A0429 [facility] SERVICE 5 AMBULANCE AMBULANCE BLS SERVICE SERVICE EMERGENCY TRANSPORT THERAPEUT 69180 ROSAL[facility] BLACKWELL IC 4 [facility] PROPHYLAC INC INC TIC/DX INJECTION SUBQ/IM GROUND A0425 [facility] AMBULANCE AMBULANCE PER SERVICE SERVICE STATUTE MILE AMB A0427 [facility] SERVICE 4 AMBULANCE AMBULANCE ALS SERVICE SERVICE EMERGENCY TRANSPORT LEVEL 1 RADIOLOGI 77955 M[facility]Y [facility]Z ELENA C EXAM 4 MEDICAL ROSEY CHEST 2 IMAGING VIEWS ASS FRONTAL&[place] [address] MART[place] LUZ ELENA ABDOMEN & 4 MEDICAL ROSEY PELVIS IMAGING W/CONTRAS ASS T MATERIAL CT THORAX 77525 MART[place] LUZ ELENA 4 MEDICAL ROSEY W/CONTRAS IMAGING T ASS MATERIAL Encounters Encounter Start End Date Code Location Performer Type Date [facility] ROSALVA - 7 7 [facility] OUTPATIEN INC T OFFICE 28490 [facility] OUTPATIEN 7 7 PHYSICIAN T NEW 20 S GROUP MINUTES OFFICE 30168 DOM RUTH CONSULTAT 7 7 MEDICAL ION SERV NEW/ESTAB FOUNDATIO PATIENT N 60 MIN OFFICE 17052 NANY ROBERTSPATISYLVIE 7 7 T VISIT 15 MINUTES OFFICE 97221 NANY AYON OUTPATISYLVIE 7 7 T VISIT 15 MINUTES EMERGENCY 89204 [place] [facility] 6 6 PHYSICIAN DEPARTMEN S, PLL[facility] T VISIT MODERATE SEVERITY OFFICE 91923 NANY AYON OUTPATIEN 6 6 TOBIN TOBIN T VISIT 15 MINUTES OFFICE 84675 NANY AYON OUTPATIEN 6 6 TOBIN TOBIN T VISIT 15 MINUTES OFFICE 02381 NANY AYON OUTPATIEN 6 6 TOBIN TOBIN T NEW 30 MINUTES EMERGENCY 48622 [place] BARRY DEPT 5 5 PHYSICIAN LUCAS VISIT S, PLLC HIGH SEVERITY& THREAT PENDING SALE TO [facility] EMERGENCY 28371 DOM DE LA O JR DEPT 5 5 MEDICAL JANET VISIT SERV HIGH FOUNDATIO SEVERITY& N THREAT [facility] ROSALVA - 5 5 [facility] OUTPATIEN INC T EMERGENCY 86523 [place] COLON 5 5 [facility] MODERATE SEVERITY EMERGENCY 57325 ROSALVA COLON 4 4 [facility] T VISIT P LOW/MODER SEVERITY HOSPITAL [facility] - 4 4 [facility] OUTPATIEN INC T EMERGENCY 52907 JOÃO CYNDEE JOÃO CYNDEE 4 4 [facility] T VISIT MODERATE SEVERITY Emergency SHRUTHI Hernandez (ER) 3 16:16 3 17:43 [facility] Emergency SHRUTHI Colon MD (ER) 3 02:19 3 02:48 [facility] Emergency SHRUTHI Grossman MD (ER) 3 15:21 3 17:32 [facility] Emergency SHRUTHI WASHINGTON MD (ER) 3 14:37 3 19:15 [facility]
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
--- OUTSIDE RECORDS SUMMARY | 2017-07-09 20:45 | External Medical Summary Rpt | CCD ---
Author Author , NELLY Organization NELLY Address Unknown Phone Immunization Name Date Rout CVX Reac Dose Comm Prov Is Faci e tion ent ider Refu lity Give sed n Td 07-2 9 999 Hist H134 No H134 (mica 3-19 ori lt), 96 al Info adso rmat rbed ion - Sour ce Unsp ecif ied
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
--- OUTSIDE RECORDS SUMMARY | 2017-07-09 20:46 | External Medical Summary Rpt ---
Author Author [employer], [employer] Organization [employer] Address Unknown Phone Unavailable Results Comprehensive metabolic 2000 panel in Serum or Plasma Observa Value Referen Units Interpr Notes Date tion ce etation Range Albumin/G 1.1 - 1.8 No Low No May 04 lobulin informati informati 2016 [Mass on in on in 11:25 AM ratio] in source source Serum or data data Plasma Albumin 3.4 - 5.0 gm/dL Normal No May 04 [Mass/vol informati 2016 ume] in on in 11:25 AM Serum or source Plasma data Alkaline 46 - 116 U/L Normal No May 04 phosphata informati 2016 se on in 11:25 AM [Enzymati source c data activity/ volume] in Serum or Plasma Bilirubin 0.2 - 1.0 mg/dL Normal No May 04 .total informati 2016 [Mass/vol on in 11:25 AM ume] in source Serum or data Plasma Urea 7 - 18 mg/dL High No May 04 nitrogen informati 2016 [Mass/vol on in 11:25 AM ume] in source Serum or data Plasma Calcium 8.5 - mg/dL Normal No May 04 [Mass/vol 10.1 informati 2016 ume] in on in 11:25 AM Serum or source Plasma data Chloride 98 - 107 mmoL/L Low No May 04 [Moles/vo informati 2017 lume] in on in 11:25 AM Serum or source Plasma data Carbon 21.0 - mmoL/L Normal No May 04 dioxide, 32.0 informati 2016 total on in 11:25 AM [Moles/vo source lume] in data Serum or Plasma Creatinin 0.70 - mg/dL High No May 04 e 1.30 informati 2016 [Mass/vol on in 11:25 AM ume] in source Serum or data Plasma Estimated >60 ML/MIN No REFERENCE May 04 informati RANGE: 2017 glomerula on in >60 11:25 AM r source ML/MIN/1. filtratio data 73 SQUARE n rate METERSIf (GF this patient is -A merican, then multiply theresult by 1.210. Globulin 1.3 - 3.2 gm/dL High No May 04 [Mass/vol informati 2016 ume] in on in 11:25 AM Serum source data Glucose 74 - 106 mg/dL Normal No May 04 [Mass/vol informati 2016 ume] in on in 11:25 AM Serum or source Plasma data Potassium 3.5 - 5.1 mmoL/L Normal No May 04 inform2016 [Moles/vo on in 11:25 AM lume] in source Serum or data Plasma Sodium 136 - 145 mmoL/L Low No May 04 [Moles/vo informati 2016 lume] in on in 11:25 AM Serum or source Plasma data Aspartate 15 - 37 U/L High No May 042016 aminotran on in 11:25 AM sferase source [Enzymati data c activity/ volume] in Serum or Plasma Alanine 12 - 78 U/L Normal No May 04 aminotran 2016 sferase on in 11:25 AM [Enzymati source c data activity/ volume] in Serum or Plasma Protein 6.4 - 8.2 gm/dL High No May 04 [Mass/vol informati 2016 ume] in on in 11:25 AM Serum or source Plasma data Thyroxine (T4) free [Mass/volume] in Serum or Plasma Observa Value Referen Units Interpr Notes Date tion ce etation Range Thyroxine 0.76 - ng/dL Normal No May 04 (T4) 1.46 2016 free on in 11:25 AM [Mass/vol source ume] in data Serum or Plasma Lipid 1996 panel in Serum or Plasma Observa Value Referen Units Interpr Notes Date tion ce etation Range Cholester < 200 mg/dL No No May 04 ol informati inform2016 [Moles/vo on in on in 11:25 AM lume] in source source Unspecifi data data ed specimen Cholester 40 - 60 MG/DL High No May 04 ol in HDL informati 2016 on in 11:25 AM [Mass/vol source ume] in data Serum or Plasma Cholester 0 - 130 mg/dL Normal No May 04 ol in LDL informati 2016 on in 11:25 AM [Mass/vol source ume] in data Serum or Plasma by calculati on Triglycer 30 - 200 mg/dL Normal No May 04 delma 2016 [Moles/vo on in 11:25 AM lume] in source Serum or data Plasma Cholester 0 - 40 No Normal No Apr 16 ol in informati 2017 VLDL on in on in 11:25 AM [Mass/vol source source ume] in data data Serum or Plasma Thyrotropin [Units/volume] in Serum or Plasma Observa Value Referen Units Interpr Notes Date tion ce etation Range Thyrotrop 0.358 - uIU/ml Normal No Apr 16 in 3.740 2016 [Units/vo on in 11:25 AM lume] in source Serum or data Plasma CBC W Auto Differential panel in Blood Observa Value Referen Units Interpr Notes Date tion ce etation Range Basophils 0 - 0.2 K/MM3 Normal No May 042016 [#/volume on in 11:25 AM ] in source Blood by data Automated count Basophils 0.1 - 2.0 % Normal No May 04 /100 2016 leukocyte on in 11:25 AM s in source Blood by data Automated count Eosinophi 0.0 - 0.4 K/mm3 Normal No May 04 ls 2016 [#/volume on in 11:25 AM ] in source Blood by data Automated count Eosinophi 0.1 - % Normal No May 04 ls/100 12.0 2016 leukocyte on in 11:25 AM s in source Blood by data Automated count Granulocy 1.3 - 8.0 K/mm3 Normal No May 04 za 2016 [#/volume on in 11:25 AM ] in source Blood by data Automated count Granulocy 37.0 - % Normal No May 04 za/100 80.0 2016 leukocyte on in 11:25 AM s in source Blood by data Automated count Hematocri 42.0 - % Low No May 04 t [Volume 52.0 2016 on in 11:25 AM Fraction] source of Blood data Hemoglobi 14.1 - g/dL Low No May 04 n 18.0 2016 [Mass/vol on in 11:25 AM ume] in source Blood data Lymphocyt 0.7 - 4.5 K/mm3 Normal No May 04 es 2016 [#/volume on in 11:25 AM ] in source Unspecifi data ed specimen by Automated count Lymphocyt 10 - 50 % Normal No May 04 es 2016 [#/volume on in 11:25 AM ] in source Unspecifi data ed specimen by Automated count Erythrocy 27 - 31.2 pg High No May 04 te mean 2016 corpuscul on in 11:25 AM ar source hemoglobi data n [Entitic mass] Erythrocy 31.8 - g/dl Normal No May 04 te mean 35.4 2016 corpuscul on in 11:25 AM ar source hemoglobi data n concentra tion [Mass/vol ume] by Automated count Erythrocy 82.2 - fl Normal No May 04 te mean 97.8 2016 corpuscul on in 11:25 AM ar volume source [Entitic data volume] by Automated count Monocytes 0.1 - 1.0 K/mm3 Normal No May 042016 [#/volume on in 11:25 AM ] in source Blood by data Automated count Monocytes 1.7 - 9.3 % Normal No May 04 /100 2016 leukocyte on in 11:25 AM s in source Blood by data Automated count Platelet 7.4 - fl Normal No May 04 mean 10.4 2016 volume on in 11:25 AM [Entitic source volume] data in Blood by Automated count Platelets 142 - 424 K/mm3 Normal No May 042016 [#/volume on in 11:25 AM ] in source Blood data Erythrocy 4.6 - 6.2 M/mm3 Low No May 04 za inform2016 [#/volume on in 11:25 AM ] in source Amniotic data fluid Erythrocy 11.5 - % Normal No May 04 te 17.5 2016 distribut on in 11:25 AM ion width source [Entitic data volume] by Automated count Leukocyte 4.8 - K/MM3 Normal No May 04 s 10.8 2016 [#/volume on in 11:25 AM ] in source Blood data
[2017-07-09 20:59] LABS: HEMOGLOBIN 11.4 g/dL (14.1-18.0); LYMPH # 2.9 K/mm3 (0.7-4.5); LYMPH % 36.1 % (10-50)
--- NOTE | 2017-07-09 21:06 | Emergency Room Report ---
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 N Clinical Suspician of Infection? N Mental Status: 1 - Regular (Normal Baseline) Sepsis Risk:Possible Sepsis Risk Have you (or family members/close friends) recently traveled outside the [place]? N If Yes, where/when: Have you had exposure to infectious disease within the past month? N TB? Other? Specify: Source patient, RN notes reviewed, family, EMS, old records Exam Limitations no limitations Comment pt with acute syncopal episode tonight but also involved trip type injury - pt with brief loc but no chest pain or palpatations Cardiac Chest Pain Chest pain indicative of cardiac No Timing/Duration this evening Severity moderate ALLERGIES Coded Allergies: Penicillins (07/21/16) aspirin (07/21/16) Home Medications Active Scripts LISINOPRIL (Lisinopril) 40 MG PO DAILY #30 TAB Ref 1 Prov: 06/10/15 Hydralazine Hcl (Hydralazine 25MG Tab) 25 MG PO TID #90 TAB Ref 1 Prov: 06/10/15 Colchicine 0.6 MG PO DAILY #7 TAB Ref 1 Prov: 07/21/16 Methylprednisolone (Medrol Dose Phil) 4 MG PO UD #1 PHIL Prov: 07/21/16 RANITIDINE HCL (Zantac) 300 MG PO DAILY #15 TAB Ref 1 Prov: 07/21/16 Reported Medications Allopurinol 100 MG PO DAILY #30 TAB CIPROFLOXACIN HCL (Ciprofloxacin HCl) 500 MG PO BID #20 History Medical History General CAD? No Angina: Yes IA: No Hypertension? Yes Hyperlipidemia? No CHF? No DVT? No PE? No COPD? No Asthma? Yes Anemia? No Hernia? No Thyroid Problems? No Hypothyroidism? No CVA? No Seizures? No Diabetes? No End Stage Renal Disease? No UTI? No Stones? No GB Disease: No Nephritic Syndrome? No Asplenia? No Hepatitis? No Sickle Cell Disease? No Arthritis? No Cataracts? No Glaucoma? No MRSA? No TB? No Cancer? No More? Yes Additional hx: SUBDURAL BLEED Immunization Hx DT/Tetanus 1-4 Years Ago Flu Refused Pneumonia Received In Past Surgical Hx Previous Surgery?Y BRAIN SX R/T BLEED Family History Family Hx Diabetes Yes CAD Yes Hypertension Yes Hyperlipidemia Yes Cancer Yes TB No Social History Smoking Hx Smoker: Light Tobacco Smoker Tobacco: No Type Cigarettes Packs/day < 1 Pack Alcohol Alcohol: Yes Drugs none Review of Systems All Other Systems Reviewed and Negative Constitutional denies fever Eyes denies drainage ENT denies: ear discharge, epistaxis, throat pain. Respiratory denies cough, denies shortness of breath, denies wheezing Cardiovascular see HPI, denies chest pain, denies palpitations, syncope Gastrointestinal see HPI, abdominal pain, denies diarrhea, denies vomiting Genitourinary denies: dysuria, frequency, hesitancy, hematuria. Musculoskeletal denies back pain, denies joint pain, denies joint swelling, denies neck pain Skin denies rash Psychiatric/Neurological denies headache, denies seizure Physical Exam Vital Signs Vital Signs Date Time Temp Pulse Resp B/P Pulse O2 O2 Flow FiO2 Ox Delivery Rate 07/09 2259 93 21 123/90 99 07/09 2215 101 21 148/99 100 07/09 2118 96 21 122/91 100 07/09 2027 98.0 108 24 103/68 100 - WBC >12,000 or <4,000 or 10% bands? 2 or more SIRS Criteria Met? B/P:123/90 MAP:79 Creatinine >2.0? UA output<0.5ml/kg/hr for 2 hrs? Platelet count >100,000? Lactate >2.0mmol/1? INR >1.2 or PTT > than 60 sec? Evidence of Organ Dysfunction? Provider documented clinical suspician of infection? N Sepsis Criteria Count: 2 Sepsis Risk: Possible Sepsis Risk General Appearance no apparent distress Eye Exam - bilateral eye PERRL, bilateral eye EOMI Ear, Nose, Throat dental caries Neck supple Respiratory Status No: respiratory distress. Lung Sounds bilateral: lungs clear. 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 No Results/Orders Laboratory Tests 07/09/172214: Opiates Screen NEGATIVE, Urine Methadone Screen NEGATIVE, Barbiturates NEGATIVE, Phencyclidine Screen NEGATIVE, Amphetamines Screen NEGATIVE, Benzodiazepines Screen NEGATIVE, Cocaine Screen NEGATIVE, Marijuana (THC) Screen NEGATIVE, Urine Color YELLOW, Urine Appearance CLEAR, Urine pH 6.0, Ur Specific [place] 1.010, Urine Protein NEGATIVE, Urine Ketones TRACE H, Urine Blood NEGATIVE, Urine Nitrate NEGATIVE, Urine Bilirubin NEGATIVE, Urine Urobilinogen 2.0, Ur Leukocyte Esterase NEGATIVE, Urine WBC 3-5, Ur Squamous Epith Cells 3-5, Urine Mucus TRACE , Urine Glucose NEGATIVE 07/09/172039: Troponin I < 0.02 07/09/172039: Sodium 128 L, Potassium 4.5, Chloride 91 L, Carbon Dioxide 22, BUN 19 H, Creatinine 2.0 H, Estimated Creat Clear 39 L, Estimated GFR (MDRD) 35, Glucose 128 H, Calcium 8.9, Total Bilirubin 0.7, AST 123 H, ALT 54, Alkaline Phosphatase 78, Total Protein 8.7 H, Albumin 3.9, Globulin 4.8 H, Albumin/ Globulin Ratio 0.8 L, Amylase 87, Lipase 331, WBC 8.1, RBC 3.59 L, Hgb 11.4 L , Hct 35.0 L, MCV 97.3, RDW 14.1, Plt Count 220, MPV 8.7, Gran % 52.8, Gran # 4.3, Lymphocytes % 36.1, Monocytes % 8.3, Eosinophils % 1.2, Basophils % 1.6, Lymphocytes # 2.9, Monocytes # 0.7, Eosinophils # 0.1, Basophils # 0.1, PUBS MCHC 32.5, MCH 31.6 H, Alcohols 215 H Current Medication Orders Sig/Jojo Start time Last Medication Dose Route Stop Time Status Admin Sodium Chloride 1,000 ML .Q10H 07/09 2045 AC 07/09 IV 07/10 Sodium Chloride 10 ML PRN PRN 07/09 2045 AC IV 07/10 2038 Sodium Chloride 1,000 ML .STK-MED ONE 07/09 2041 DC IV Orders Procedure Date/time Status DIET-NOTHING BY MOUTH 07/10 B Active TROPONIN I 07/[address] HEAD W/O CONTRAST 07/[address] CERVICAL SPINE W/O CONT. 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 ST/Twave chgs XRAY/CT/US XRAY/CT/US 1 XRAY chest, pelvis XR interpretation by reviewed by me Xray Results normal/NAD XRAY/CT/US 2 CT head, C-spine, abdomen, pelvis CT interpretation by discussed w/radiologist Time results known: 2211 CT Results abnormal (see report) Departure Departure Time of Disposition 2329 Disposition DC Home or Self Care(routine) Clinical Impression Primary Impression: Syncope Qualifiers: Syncope type: unspecified Qualified Code: R55 - Syncope and collapse Secondary Impressions: Alcohol intoxication Qualifiers: Complication of substance-induced condition: uncomplicated Qualified Code: F10.920 - Alcohol use, unspecified with intoxication, uncomplicated Renal insufficiency Condition STABLE Referrals SANG LECHUGA (Family) Patient Instructions DI for Syncope in Adults (Fainting) Additional Instructions see pcp tuesday am for follow up and hold lisinopril Discharge Counseling Counseled pt/family regarding diagnosis, test results, medications/RX, follow up needs ED Critical Care Critical Care No at [phone]
[2017-07-09 22:33] LABS: URINE BLOOD NEGATIVE (NEG)
[2017-07-09 22:37] LABS: AMPHETAMINES/METAMPHETAMINES NEGATIVE ng/mL (<1000)
[2017-07-09 22:40] LABS: URINE BILIRUBIN - DIPSTICK NEGATIVE (NEG)
--- NOTE | 2017-07-10 | RADIOLOGY REPORT PS360 ---
CT HEAD WITHOUT CONTRAST CT BONE WINDOWS included ORDERING PHYSICIAN : Brandy Colon MD PATIENT AGE: 52 years GENDER: Male PROCEDURE: Routine axial images headwithout contrast. Brain & bone windows HISTORY: FALLStriking back of head. 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 Old infarct sequela most evident here. (. Seen on axial slice 19 through 22.) There small triangular old focal area atrophy periphery inferior left frontal lobe anteriorly; reflect a small old insult/or ischemia here.. (Axial slice 18 & 19) There is diffuse cerebral atrophy advanced for 52-year-old .. Suggestion chronic small vessel deep white matter of ischemic changes again noted bilaterally. Suggestion of a few tiny lacunar infarcts at basal ganglia bilateral. Unchanged. No subdural collection evident. No definitive acute hemorrhage However On close inspection there is a curious 15 mm transverse x 12 mm AP vague ovoid focus which appears very very slightly denser than adjacent cerebellum. (Axial image 15, 16, 17). Suggestion/question of subtle surrounding edema questionably present outlining its margin . These images initially raise question possible underlying small mass lesion developing but there is no mass effect.. Subtle residual density tracking into this area from the previous hematoma is briefly considered. Doubt but cannot totally exclude subtle area of very subtle petechial hemorrhage here at inferior left cerebellum- difficult to totally exclude... Would suggest a follow-up CT with and without contrast.. If significant drinking history may be worth checking clotting times.(I would note that this area is not readily apparent on the CT C-spine this area. On those studies at is near isodense character to adjacent tyler matter..). Findings briefly discussed with Dr. oClon in the ER Old skull fracture at the left supraorbital region and continuing to the left frontal bone was seen in February 2015 with mild residual from this partially healed fracture. Mild soft tissue swelling overlying the right occipital region. No significant findings of the paranasal sinuses only scant mucosal thickening inferior right maxillary sinus. Mastoid air cells bilateral, middle ear and IACs bilaterally as well as base of skull otherwise unremarkable.. IMPRESSION: 1. . 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 2. Very Small focal area of atrophy anterior inferior left frontal lobe-likely reflect prior minor insult/ischemia this region 3. Diffuse cerebral atrophy. Advanced for 52-year-old. . Chronic small vessel deep white matter changes cerebral hemispheres similar to prior study. 4... Additionally note curious appearance inferior left cerebellar hemisphere. Suggestion of vague 15 mm ovoid area, very very slightly denser than adjacent tyler matter, & located at inferior left cerebellar hemisphere. Suggestion/question minor surrounding edema.. Equivocal feature. Could be exaggerated by streak artifact.; Initially question possible small mass lesion but no significant mass effect. Sequela from old hemorrhagic event in this in this general region considered.. Difficult to exclude a small recent petechial hemorrhagic changes from from current or recent injury (but I understand from provided hx Dr Allen that only minor trauma). This warrants follow-up. Consider follow-up pre and postcontrast CT,... Or MRI.. MRI is particularly useful in evaluating posterior fossa (Additional note. This was not addressed by [facility] report but is evident on axial image 16, 17 at inferior left cerebellum ) 5. Old left frontal skull fracture residual from 2014 (Fax report to Riya Bray, [facility] follow-up)
--- NOTE | 2017-07-10 00:09 | RADIOLOGY REPORT PS360 ---
CT CERVICAL SPINE W/O CONT HISTORY: FALL neck pain Patient Age: 52 years: Male Ordering Physician: Brandy Colon MD TECHNIQUE: Helical CT scan performed the cervical spine with sagittal coronal reconstructions on CT workstation. COMPARISON :Plain film C-spine August 2008. FINDINGS No acute fracture nor subluxation. Progressive degenerative changes C-spine versus 2008. Multilevel degenerative disc changes and multilevel marginal osteophytes & spurring have progressed since prior study. Nonspecific straightening most likely positional. Cervical spondylosis with disc space narrowing most evident at C6/7. Posterior disc & osteophyte features most evident at this level indenting anterior aspect of thecal sac and yield a borderline spinal stenosis at and mild bilateral foraminal encroachment. C5/6 and C4/5 with a less pronounced disc space narrowing and uncovertebral joint hypertrophy bilaterally. Spurring yields Mild encroachment upon the neural foramen bilaterally. There is also disc space narrowing C7 on T1. Hypertrophic facet changes most pronounced the left at this level. C1-C2 relationships appear normal. Prevertebral soft tissues appear normal. Nonspecific straightening most likely positional but can reflect muscle spasm from recent injury. Generous tonsils bilateral. . Minor mucosal thickening at inferior maxillary sinuses bilaterally most evident on the right. No acute sinusitis Prominent Dental caries partially imaged at bilaterally Imaging includes lung apices which are clear. IMPRESSION... 1. No acute fracture nor subluxation. 2. Multilevel degenerative disc changes and cervical spondylosis.:. Degenerative features and Disc space narrowing most evident at C6/7.. Less pronounced disc space narrowing C5/6 C4/5 C7/T1 Prominent facet hypertrophy/, arthropathy to most evident the left at C7/T1 3. Prominent dental caries bilateral, warrants dental follow-up
--- NOTE | 2017-07-10 00:11 | RADIOLOGY REPORT PS360 ---
CHEST-AP VIEW ONLY Ordering physician: Brandy Colon MD Age: 52 years Male INDICATION: chest symptomsfall chest injury. Fall. Syncope. PROCEDURE: CHEST-AP supine VIEW ONLY FINDINGS: Prior portable chest study 06/23/2016. Lungs well expanded and clear with nothing definitely acute. No pneumothorax. No pleural effusion. No focal pneumonia. Mild elevation right hemidiaphragm again noted.. Heart normal size. Normal pulmonary vascularity. Hilar and mediastinal structures appear satisfactory. Calcified hilar nodes bilaterally reflect old stable granulomatous disease.. Chest wall unremarkable. T-spine intact. IMPRESSION ----- Stable chest with nothing definite acute.
[2017-07-10 00:28] VITALS: BP 126/88
--- NOTE | 2017-07-10 00:32 | RADIOLOGY REPORT PS360 ---
CT ABD PELVIS W/O CONTRAST HISTORY: FALL pelvic and abdominal pain. Fall. Syncope Patient Age: 52 years: Male Ordering Physician: Brandy Colon MD TECHNIQUE: Helical CT scanning performed the abdomen pelvis with no oral nor IV contrast utilized. COMPARISON :Previous CT abdomen pelvis 08/27/2012 FINDINGS The lung bases appear clear with no active disease of the heart is normal in size. Abdomen/pelvis. The lack of oral and IV contrast decreases sensitivity. Liver. Hepatic steatosis. Prominent diffuse fatty changes with no focal lesions evident. Gallbladder.. On axial image 33 and axial image 33 question and suspect some very tiny pinpoint size stones. Barely evident. Spleen. Small unremarkable. Pancreas. Unremarkable. Kidneys. No urinary tract calculi nor obstruction. Ureters appear normal in course and caliber. Appendix visualized and normal. [No bowel dilatation] large bowel. Colonic diverticulosis throughout the colon but most evident at the sigmoid colon and left colon. Also seen less evident at the transverse and right colon... The Upper normal wall thickness at descending colon most likely reflecting lack of distention.Minimal stool throughout the colon. Minimal gas and fluid throughout small bowel with a few unimpressive small air-fluid within a gas-filled small bowel loop at left mid abdomen.... Nonspecific. Possible localized ileus. Pelvis. Prominent diffuse wall thickening and bladder may reflect a cystitis.. Could not exclude other pathology thickening given the slightly lobulated appearance of wall thickening inferiorly on the right.--Urology consult recommended given the overall appearance The prostate is fairly normal size not enlarged measures 4.5 cm transverse. No retroperitoneal nor mesenteric adenopathy. Lumbar spine intact unremarkable. No evidence of acute acute fracture or acute findings related to fall on this noncontrast study. IMPRESSION------- 1. Moderate-generous diffuse wall thickening of urinary bladder most significant finding... May reflect cystitis However would additionally note slightly lobulated appearance to the mucosal thickening inferiorly at bladder. Cannot exclude more significant pathology.-Urology consult recommended., Particularly if cystitis not clearly evident clinically. 2. Otherwise no acute findings abdomen pelvis. Minor other observations: 3. Question/suspect view tiny pinpoint gallstones, dependent gallbladder. Equivocal But suspect 4. Prominenthepatic steatosis 5. Colonic diverticulosis throughout colon most evident at sigmoid colon. No diverticulitis.
--- NOTE | 2017-07-10 00:51 | RADIOLOGY REPORT PS360 ---
PELVIS AP ONLY HISTORY: fall pelvic pain hip pain fall Patient Age: 52 years: Male Ordering Physician: Brandy Colon MD TECHNIQUE: AP pelvis COMPARISON :Subsequent CT abdomen pelvis utilized FINDINGS Osseous pelvis is intact with no fracture evident. Sacrum and SI joints unremarkable. AP view of hips appear intact with no fracture. Bones well mineralized. Phleboliths pelvic basin. IMPRESSION: Osseous pelvis intact. No fracture. No acute findings.
== END 2017-07-10 00:20 | disposition home or self-care (01) ==
LOC: ER 20:24
PROVIDERS: Emergency Medicine
DX: R55 Syncope and collapse (principal); F10.920 Alcohol use, unspecified with intoxication, uncomplicated; N28.9 Disorder of kidney and ureter, unspecified; F17.210 Nicotine dependence, cigarettes, uncomplicated; I10 Essential (primary) hypertension; Z88.0 Allergy status to penicillin; Z79.82 Long term (current) use of aspirin